=== PATIENT | female | born 1945 | race Caucasian/White ===

== ENCOUNTER 2023-01-01 06:35 | Day surgery (SDC) | payer OTHER ==
[~2023-01-01] VITALS: Ht 152.4 cm; Wt 75.0 kg
[2023-01-01] MEDS ORDERED: LIDOCAINE 2% 11 ML JELLY TP ONE (06:36)
[2023-01-01] MEDS ORDERED: LIDOCAINE 4% 50 ML SOLUTION TP ONE (06:36)
[2023-01-01] MEDS ORDERED: BENZOCAINE 20% 50 MCG/SPRAY 57 GM TP ONE (06:36)
[2023-01-01] MEDS ORDERED: SODIUM CHLORIDE 0.9% 1,000 ML ONE (06:56)
[2023-01-01] MEDS ORDERED: SODIUM CHLORIDE 0.9% 1,000 ML IV ONE (07:15)
[2023-01-01] MEDS ORDERED: METH1TAB66 PO (07:19)
[2023-01-01] MEDS ORDERED: ATOR10TA69 PO (07:19)
[2023-01-01] MEDS ORDERED: LEVO50TA11 PO (07:19)
[2023-01-01] MEDS ORDERED: BISO10TA11 PO (07:19)
[2023-01-01 08:07] LABS: COVID AG,FIA SOURCE NASAL SWAB
[2023-01-01] MEDS ORDERED: FentaNYL CITRATE PF 100 MCG/2 ML VIAL ONE (08:29)
[2023-01-01] MEDS ORDERED: MIDAZOLAM HCL 2 MG/2 ML VIAL ONE (08:29)
[2023-01-01] MEDS ORDERED: MethylPREDNISolone SOD SUCC 125 MG/2 ML VIAL ONE (09:36)
[2023-01-01] MEDS ORDERED: MethylPREDNISolone SOD SUCC 125 MG/2 ML VIAL IVP ONE (10:00)
== END 2023-01-01 11:00 | disposition home or self-care (01) ==
LOC: SURGERY 06:35
PROVIDERS: ATTEND Internal Medicine Critical Care Medicine
DX: R05.3 Chronic cough (principal); R91.1 Solitary pulmonary nodule; J98.09 Other diseases of bronchus, not elsewhere classified; J98.8 Other specified respiratory disorders; M81.0 Age-related osteoporosis without current pathological fracture; E78.00 Pure hypercholesterolemia, unspecified; Z20.822 Contact with and (suspected) exposure to COVID-19; Z90.49 Acquired absence of other specified parts of digestive tract; Z98.890 Other specified postprocedural states
CPT/HCPCS: 31623; 88112; 87101; 87220; 87070; 31624; 71045; 87015; 87426; 87206; J3010; J2250; J2930; Q9967; J7030; C9803; Z7610